=== PATIENT | female | born 1970 | race African-American/Black ===

== ENCOUNTER 2023-07-25 20:56 | Inpatient (IN) | payer SELFPAY ==
[~2023-07-25 20:56] MED LIST: EPINEPHrine 1 MG/ML AMP ONE; Fentanyl 250 MCG/5 ML VIAL ONE; Lidocaine 1% (PF) 30 ML VIAL ONE
[2023-07-25] MEDS ORDERED: PHENYLEPHRINE-NS 100 MCG/ML 10 ML SYRINGE ONE (21:02)
[2023-07-25] MEDS ORDERED: Lidocaine 1% PF 5 ML VIAL ONE (21:02)
[2023-07-25] MEDS ORDERED: Ondansetron PF 4 MG/2 ML Vial ONE (21:02)
[2023-07-25] MEDS ORDERED: Dexamethasone 20 MG/5 ML VIAL ONE (21:02)
[2023-07-25] MEDS ORDERED: PROPOFOL 200 MG/20 ML VIAL ONE (21:02)
[2023-07-25] MEDS ORDERED: Rocuronium Bromide 10 MG/ML (10ML VIAL) ONE (21:02)
[2023-07-25] MEDS ORDERED: Succinylcholine 200 MG/10 ml SYRINGE FS ONE (21:02)
[2023-07-25] MEDS ORDERED: Thrombin 5000 UNITS/5 ML VIAL ONE (21:19)
[2023-07-25] MEDS ORDERED: Propofol 1,000 MG/100 ML VIAL IV ONE (22:15)
[2023-07-25] MEDS ORDERED: Acetaminophen 650 MG Suppository PR PRN (22:31)
[2023-07-25] MEDS ORDERED: Propofol 1,000 MG/100 ML VIAL IV PRN (22:38)
[2023-07-25] MEDS ORDERED: Ventilator Sedation Protocol 1 EACH FS ONE (22:38)
[2023-07-25] MEDS ORDERED: FENTANYL 500 MCG/10 ML VIAL 2,000 MCG in Sodium Chloride 0.9% 60 ML IV PRN (22:42)
[2023-07-25] MEDS ORDERED: Fentanyl BOLUS 250 ML IVPB PRN (22:45)
[2023-07-25] MEDS ORDERED: Propofol BOLUS 1,000 MG/100 ML VIAL IV PRN (22:45)
[2023-07-25] MEDS ORDERED: DISCONTINUE PREVIOUS NARCOTIC PAIN MEDICATIONS AND BENZODIAZEPINES FS SCH (22:45)
[2023-07-25] MEDS ORDERED: Electrolyte Replacement Protocol 1 EACH FS SCH (22:45)
[2023-07-25] MEDS ORDERED: niCARdipine 25 MG in Sodium Chloride 0.9% 250 ML 250 ML IVPB SCH (23:00)
[2023-07-25] MEDS: Sodium Chloride 0.9% 1,000 ML IV SCH (23:42)
[2023-07-25 23:46] LABS: Actual Bicarbonate (HCO3a) 21.9 mEq/L (22-28); Base Excess (BEa) -2.9 mEq/L (-2.0 to +3.0); CO2 Tension 38.4 mmHg (35.0-45.0); Calcium, Ionized (arterial) 1.09 mmol/L (1.12-1.30); Carboxyhemoglobin (COHb) 0.9 gm% (0.0-3.0); Hematocrit-ABG 41 % (36.0-47.0); Hemoglobin (Hb) 13.9 g/dL (12.0-16.0); O2 Tension (PaO2), arterial 101.1 mmHg (80.0-100.0); Potassium - ABG Lab 3.56 mmol/L (3.70-5.30); pH, Arterial 7.374 (7.35-7.45)
[2023-07-25] MEDS: Fentanyl CADD 100 ML IV SCH (23:48)
[2023-07-25 23:50] LABS: Puncture Site Arterial Line
[2023-07-26] MEDS ORDERED: niCARdipine 25 MG in Sodium Chloride 0.9% 250 ML 250 ML IVPB SCH (03:45)
[2023-07-26] MEDS: Lorazepam 2 MG/ML VIAL SLOW IVP PRN (04:32)
[2023-07-26] MEDS: CEFAZOLIN 2 GM in Sodium Chloride 0.9% 100 ML IVPB SCH ×3 (04:33→20:32)
[2023-07-26 04:40] LABS: Hematocrit 37.5 % (36.0-47.0); Hemoglobin 12.9 g/dL (12.0-16.0); Mean Corpuscular HGB CONC 34.4 g/dL (32.0-36.0); Mean Corpuscular Hemoglobin 32.8 pg (27.0-31.0); Mean Corpuscular Volume 95.4 fl (78.0-98.0); Mean Platelet Volume 9.6 fL (7.4-10.4); Platelet Count 465 10x3/uL (130-400); RBC Distribution Width 13.2 % (11.5-14.5); Red Blood Cell (RBC) Count 3.93 mill/uL (4.20-5.40); White Blood Cell (WBC) Count 13.3 10x3/uL (4.8-10.8)
[2023-07-26 04:55] LABS: INR-International Normal Ratio 1.2; Prothrombin Time 15.3 sec (12.0-14.7)
[2023-07-26 04:56] LABS: PTT 31.1 sec (22.9-36.1)
[2023-07-26 05:18] LABS: Anion Gap 15 mmol/L (10-20); BUN (Urea Nitrogen) 8 mg/dL (9.8-20.1); Calc. Creatinine Clearance 95 mL/min (70-130); Calcium 8.5 mg/dL (7.8-10.44); Carbon Dioxide 21 mmol/L (22-29); Chloride 106 mmol/L (98-107); Estimated GFR 101; Glucose 120 mg/dL (70-105); Potassium 3.4 mmol/L (3.5-5.1); Sodium 139 mmol/L (136-145)
[2023-07-26 05:34] LABS: Delete Auto Diff?? YES; Manual Diff?? YES
[2023-07-26 06:36] LABS: Anisocytosis SLIGHT = 6-15 cells HPF (0-5); Band 3 % (5-11); CellaVision Operator ID LAB.JMM; Lymphocytes 7 % (21-51); Macrocytosis MODERATE=16-30 cells HPF (0-5); Monocytes 1 % (0-10); Neutrophil 87 % (42-75); Platelet Adequacy Comment Platelets Normal; Polychromasia SLIGHT = 2-3 cells HPF (0-2); Total Cell Count 101
[2023-07-26] MEDS: levETIRAcetam 500 MG/5 ML VIAL SLOW IVP SCH ×2 (07:51→20:33)
[2023-07-26] MEDS: Potassium Chloride 20 MEQ in Premix 1 BAG IVPB SCH ×2 (07:52→09:48)
[2023-07-26] MEDS ORDERED: Iopamidol-370 76% 500 ML MDV (1 ML CHARGE) ONE (09:00)
[2023-07-26] MEDS: Propofol 1,000 MG/100 ML VIAL IV PRN ×2 (11:30→20:49)
[2023-07-26] MEDS: Sodium Chloride 0.9% 1,000 ML IV SCH ×2 (11:31→20:34)
[2023-07-26] MEDS ORDERED: FLU VACC QS2023-24(6MOS UP)/PF 60 MCG/0.5 ML SYRINGE IM ONE (16:00)
[2023-07-27] MEDS: Lorazepam 2 MG/ML VIAL SLOW IVP PRN ×2 (02:49→22:40)
[2023-07-27] MEDS: Fentanyl CADD 100 ML IV SCH (02:56)
[2023-07-27 03:52] LABS: #Basophils 0.1 thou/uL (0.0-0.2); #Monocytes 0.9 thou/uL (0.11-0.59); #Neutrophils 8.1 thou/uL (1.40-6.50); %Basophils 0.6 % (0.0-1.0); %Eosinophils 0.3 % (0.0-10.0); %Lymphocytes 26.8 % (21.0-51.0); %Monocytes 6.8 % (0.0-10.0); %Neutrophils 65.1 % (42.0-75.0); Hematocrit 32.6 % (36.0-47.0); Mean Corpuscular HGB CONC 33.7 g/dL (32.0-36.0); Mean Corpuscular Hemoglobin 32.6 pg (27.0-31.0); Mean Corpuscular Volume 96.7 fl (78.0-98.0); Mean Platelet Volume 9.4 fL (7.4-10.4); Platelet Count 422 10x3/uL (130-400); RBC Distribution Width 13.7 % (11.5-14.5); Red Blood Cell (RBC) Count 3.37 mill/uL (4.20-5.40); White Blood Cell (WBC) Count 12.5 10x3/uL (4.8-10.8)
[2023-07-27 04:22] LABS: ALT (SGPT) 10 U/L (8-55); AST (SGOT) 11 U/L (5-34); Albumin 3.3 g/dL (3.5-5.0); Alkaline Phosphatase 62 U/L (40-110); Anion Gap 14 mmol/L (10-20); BUN (Urea Nitrogen) 13 mg/dL (9.8-20.1); Bilirubin, Total 0.5 mg/dL (0.2-1.2); Calc. Creatinine Clearance 91 mL/min (70-130); Calcium 8.2 mg/dL (7.8-10.44); Carbon Dioxide 20 mmol/L (22-29); Chloride 110 mmol/L (98-107); Estimated GFR 96; Globulin 2.6 g/dL (2.4-3.5); Glucose 87 mg/dL (70-105); Potassium 3.1 mmol/L (3.5-5.1); Protein, Total 5.9 g/dL (6.0-8.3); Sodium 141 mmol/L (136-145)
[2023-07-27] MEDS: CEFAZOLIN 2 GM in Sodium Chloride 0.9% 100 ML IVPB SCH ×3 (05:15→20:47)
[2023-07-27] MEDS: Potassium Chloride 20 MEQ in Premix 1 BAG IVPB SCH ×2 (08:31→10:09)
[2023-07-27] MEDS: levETIRAcetam 500 MG/5 ML VIAL SLOW IVP SCH ×2 (08:31→20:47)
[2023-07-27] MEDS: Dexmedetomidine 400 MCG, Admixture Fee 1 EACH in Sodium Chloride 0.9% 96 ML IVPB SCH (10:42)
[2023-07-27] MEDS: Morphine 2 MG/ML VIAL SLOW IVP PRN ×2 (11:02→20:25)
[2023-07-27] MEDS: Sodium Chloride 0.9% 1,000 ML IV SCH (15:06)
[2023-07-28] MEDS ORDERED: Scopolamine 1 mg/72 hour Patch TOP SCH (01:15)
[2023-07-28] MEDS: Sodium Chloride 0.9% 1,000 ML IV SCH ×2 (01:38→15:42)
[2023-07-28] MEDS: CEFAZOLIN 2 GM in Sodium Chloride 0.9% 100 ML IVPB SCH (04:06)
[2023-07-28] MEDS: Lorazepam 2 MG/ML VIAL SLOW IVP PRN ×4 (04:08→20:46)
[2023-07-28 04:41] LABS: #Basophils 0.1 thou/uL (0.0-0.2); #Eosinphils 0.2 thou/uL (0.0-0.7); #Monocytes 0.9 thou/uL (0.11-0.59); %Basophils 0.4 % (0.0-1.0); %Eosinophils 1.6 % (0.0-10.0); %Lymphocytes 23.6 % (21.0-51.0); %Monocytes 6.9 % (0.0-10.0); %Neutrophils 67.1 % (42.0-75.0); Hematocrit 32.4 % (36.0-47.0); Hemoglobin 10.7 g/dL (12.0-16.0); Mean Corpuscular Hemoglobin 32.7 pg (27.0-31.0); Mean Corpuscular Volume 99.1 fl (78.0-98.0); Mean Platelet Volume 9.9 fL (7.4-10.4); Platelet Count 409 10x3/uL (130-400); RBC Distribution Width 13.4 % (11.5-14.5); Red Blood Cell (RBC) Count 3.27 mill/uL (4.20-5.40); White Blood Cell (WBC) Count 13.4 10x3/uL (4.8-10.8)
[2023-07-28] MEDS: Dexmedetomidine 400 MCG, Admixture Fee 1 EACH in Sodium Chloride 0.9% 96 ML IVPB SCH ×2 (04:53→16:48)
[2023-07-28 05:03] LABS: Anion Gap 13 mmol/L (10-20); BUN (Urea Nitrogen) 11 mg/dL (9.8-20.1); Calc. Creatinine Clearance 105 mL/min (70-130); Calcium 8.5 mg/dL (7.8-10.44); Carbon Dioxide 19 mmol/L (22-29); Chloride 111 mmol/L (98-107); Estimated GFR 104; Glucose 69 mg/dL (70-105); Potassium 3.3 mmol/L (3.5-5.1); Sodium 140 mmol/L (136-145)
[2023-07-28] MEDS ORDERED: Ipratropium/Albuterol 3 ML NEB NEB SCH (07:45)
[2023-07-28] MEDS: levETIRAcetam 500 MG/5 ML VIAL SLOW IVP SCH ×2 (08:48→20:46)
[2023-07-28] MEDS: Potassium Chloride 20 MEQ in Premix 1 BAG IVPB SCH ×2 (08:49→10:03)
[2023-07-28] MEDS: Ipratropium/Albuterol 3 ML NEB NEB SCH ×3 (13:33→23:42)
[2023-07-28 16:48] LABS: Potassium 3.8 mmol/L (3.5-5.1)
[2023-07-28] MEDS ORDERED: Scopolamine 1 mg/72 hour Patch ONE (22:59)
[2023-07-28] MEDS: Scopolamine 1 mg/72 hour Patch TD SCH (23:24)
[2023-07-29] MEDS: Dexmedetomidine 400 MCG, Admixture Fee 1 EACH in Sodium Chloride 0.9% 96 ML IVPB SCH (01:23)
[2023-07-29] MEDS: Fentanyl CADD 100 ML IV SCH (01:58)
[2023-07-29] MEDS: Morphine 2 MG/ML VIAL SLOW IVP PRN (02:14)
[2023-07-29] MEDS: Lorazepam 2 MG/ML VIAL SLOW IVP PRN ×2 (02:46→18:45)
[2023-07-29] MEDS: Ondansetron PF 4 MG/2 ML Vial IVP PRN ×2 (02:49→14:00)
[2023-07-29 03:45] LABS: #Basophils 0.1 thou/uL (0.0-0.2); #Eosinphils 0.1 thou/uL (0.0-0.7); #Monocytes 0.9 thou/uL (0.11-0.59); #Neutrophils 12.5 thou/uL (1.40-6.50); %Basophils 0.3 % (0.0-1.0); %Eosinophils 0.4 % (0.0-10.0); %Lymphocytes 10.6 % (21.0-51.0); %Monocytes 6.2 % (0.0-10.0); Hematocrit 30.6 % (36.0-47.0); Hemoglobin 10.2 g/dL (12.0-16.0); Mean Corpuscular HGB CONC 33.3 g/dL (32.0-36.0); Mean Corpuscular Hemoglobin 33.2 pg (27.0-31.0); Mean Corpuscular Volume 99.7 fl (78.0-98.0); Mean Platelet Volume 9.4 fL (7.4-10.4); Platelet Count 415 10x3/uL (130-400); RBC Distribution Width 12.6 % (11.5-14.5); Red Blood Cell (RBC) Count 3.07 mill/uL (4.20-5.40); White Blood Cell (WBC) Count 15.2 10x3/uL (4.8-10.8)
[2023-07-29 04:07] LABS: Anion Gap 16 mmol/L (10-20); BUN (Urea Nitrogen) 7 mg/dL (9.8-20.1); Calc. Creatinine Clearance 98 mL/min (70-130); Calcium 8.5 mg/dL (7.8-10.44); Carbon Dioxide 19 mmol/L (22-29); Chloride 106 mmol/L (98-107); Estimated GFR 97; Glucose 90 mg/dL (70-105); Potassium 3.9 mmol/L (3.5-5.1); Sodium 137 mmol/L (136-145)
[2023-07-29] MEDS: Sodium Chloride 0.9% 1,000 ML IV SCH ×3 (05:23→20:32)
[2023-07-29] MEDS: Ipratropium/Albuterol 3 ML NEB NEB SCH ×3 (06:53→18:46)
[2023-07-29] MEDS: levETIRAcetam 500 MG/5 ML VIAL SLOW IVP SCH ×2 (08:48→20:32)
[2023-07-29] MEDS ORDERED: Succinylcholine 200 MG/10 ml SYRINGE FS ONE (16:50)
[2023-07-29] MEDS ORDERED: PROPOFOL 200 MG/20 ML VIAL ONE (16:50)
[2023-07-29] MEDS ORDERED: Ventilator Sedation Protocol FS PRN (17:01)
[2023-07-29] MEDS ORDERED: Succinylcholine Chloride 200 MG/10 ML VIAL IVP SCH (17:45)
[2023-07-29] MEDS: Famotidine/PF 20 mg/2ml Vial SLOW IVP SCH (20:31)
[2023-07-29] MEDS: Dexamethasone 4 mg/ml Vial SLOW IVP SCH (20:32)
[2023-07-29] MEDS: Propofol 1,000 MG/100 ML VIAL IV PRN (22:30)
[2023-07-30] MEDS: Ipratropium/Albuterol 3 ML NEB NEB SCH ×5 (00:13→22:15)
[2023-07-30] MEDS: Propofol 1,000 MG/100 ML VIAL IV PRN (04:16)
[2023-07-30 04:50] LABS: #Monocytes 0.7 thou/uL (0.11-0.59); #Neutrophils 16.7 thou/uL (1.40-6.50); %Basophils 0.2 % (0.0-1.0); %Eosinophils 0.2 % (0.0-10.0); %Monocytes 3.9 % (0.0-10.0); Hematocrit 28.7 % (36.0-47.0); Hemoglobin 9.9 g/dL (12.0-16.0); Mean Corpuscular HGB CONC 34.5 g/dL (32.0-36.0); Mean Corpuscular Hemoglobin 33.6 pg (27.0-31.0); Mean Corpuscular Volume 97.3 fl (78.0-98.0); Mean Platelet Volume 9.7 fL (7.4-10.4); Platelet Count 467 10x3/uL (130-400); RBC Distribution Width 12.6 % (11.5-14.5); Red Blood Cell (RBC) Count 2.95 mill/uL (4.20-5.40); White Blood Cell (WBC) Count 18.4 10x3/uL (4.8-10.8)
[2023-07-30 05:31] LABS: Anion Gap 14 mmol/L (10-20); BUN (Urea Nitrogen) 4 mg/dL (9.8-20.1); Calc. Creatinine Clearance 104 mL/min (70-130); Calcium 8.5 mg/dL (7.8-10.44); Carbon Dioxide 22 mmol/L (22-29); Chloride 104 mmol/L (98-107); Estimated GFR 104; Glucose 131 mg/dL (70-105); Potassium 3.7 mmol/L (3.5-5.1); Sodium 136 mmol/L (136-145)
[2023-07-30 06:41] LABS: Bacteria/HPF None Seen HPF (None Seen); Bilirubin Negative (Negative); Blood, Urine Negative (Negative); CAUTI Indications for Culture Fever or rigors; Clarity Clear (Clear); Glucose, Urine (Dipstick) Normal (Negative); Ketone, Urine 20 mg/dL (Negative); Leukocyte Negative Leu/uL (Negative); Nitrite Negative (Negative); Protein, Urine (Dipstick) Negative (Neg-Trace); RBC/HPF 0-3 HPF (0-3); Specific Gravity, Urine 1.008 (1.002-1.036); Squamous Epithelial 0-3 HPF (0-3); Urobilinogen Normal mg/dL (Less than 2); WBC/HPF 0-3 HPF (0-3)
[2023-07-30 06:43] LABS: Urine Culture Reflex No No
[2023-07-30 06:59] LABS: Actual Bicarbonate (HCO3a) 24.2 mEq/L (22-28); Base Excess (BEa) 1.3 mEq/L (-2.0 to +3.0); CO2 Tension 32.5 mmHg (35.0-45.0); Calcium, Ionized (arterial) 1.17 mmol/L (1.12-1.30); Hematocrit-ABG 33 % (36.0-47.0); Hemoglobin (Hb) 11.1 g/dL (12.0-16.0); O2 Tension (PaO2), arterial 64.1 mmHg (80.0-100.0); Potassium - ABG Lab 3.91 mmol/L (3.70-5.30)
[2023-07-30 07:01] LABS: ALV-art Gradient 180.475 mmHg (0-20); Puncture Site Right Radial
[2023-07-30] MEDS ORDERED: Piperacillin/Tazobactam 3.375 GM in Sodium Chloride 0.9% 100 ML IVPB SCH ×2 (08:00→10:00)
[2023-07-30] MEDS: levETIRAcetam 500 MG/5 ML VIAL SLOW IVP SCH ×2 (10:00→20:06)
[2023-07-30] MEDS: Famotidine/PF 20 mg/2ml Vial SLOW IVP SCH ×2 (10:00→20:06)
[2023-07-30] MEDS: Dexamethasone 4 mg/ml Vial SLOW IVP SCH ×2 (10:00→20:07)
[2023-07-30] MEDS: Sodium Chloride 0.9% 1,000 ML IV SCH ×2 (10:01→22:49)
[2023-07-30] MEDS: Lorazepam 2 MG/ML VIAL SLOW IVP PRN (12:38)
[2023-07-30] MEDS: Piperacillin/Tazobactam 3.375 GM in Sodium Chloride 0.9% 100 ML IVPB SCH ×2 (14:40→22:48)
[2023-07-30] MEDS: Fentanyl CADD 100 ML IV SCH (18:17)
[2023-07-31] MEDS ORDERED: Scopolamine 1 mg/72 hour Patch TD SCH (02:00)
[2023-07-31 04:19] LABS: #Eosinphils 0.5 thou/uL (0.0-0.7); #Monocytes 1.1 thou/uL (0.11-0.59); #Neutrophils 16.4 thou/uL (1.40-6.50); %Basophils 0.2 % (0.0-1.0); %Eosinophils 2.8 % (0.0-10.0); %Lymphocytes 4.6 % (21.0-51.0); %Monocytes 5.9 % (0.0-10.0); %Neutrophils 85.7 % (42.0-75.0); Hematocrit 29.4 % (36.0-47.0); Hemoglobin 9.6 g/dL (12.0-16.0); Mean Corpuscular HGB CONC 32.7 g/dL (32.0-36.0); Mean Platelet Volume 9.9 fL (7.4-10.4); Platelet Count 454 10x3/uL (130-400); RBC Distribution Width 15.2 % (11.5-14.5); Red Blood Cell (RBC) Count 2.91 mill/uL (4.20-5.40); White Blood Cell (WBC) Count 19.1 10x3/uL (4.8-10.8)
[2023-07-31 05:49] LABS: Anion Gap 13 mmol/L (10-20); BUN (Urea Nitrogen) 6 mg/dL (9.8-20.1); Calc. Creatinine Clearance 111 mL/min (70-130); Calcium 8.7 mg/dL (7.8-10.44); Carbon Dioxide 25 mmol/L (22-29); Chloride 104 mmol/L (98-107); Estimated GFR 106; Glucose 170 mg/dL (70-105); Potassium 4.1 mmol/L (3.5-5.1); Sodium 138 mmol/L (136-145)
[2023-07-31] MEDS: Piperacillin/Tazobactam 3.375 GM in Sodium Chloride 0.9% 100 ML IVPB SCH ×3 (06:18→21:40)
[2023-07-31 06:55] LABS: Actual Bicarbonate (HCO3a) 26.2 mEq/L (22-28); Base Excess (BEa) 3.2 mEq/L (-2.0 to +3.0); CO2 Tension 34.5 mmHg (35.0-45.0); Calcium, Ionized (arterial) 1.19 mmol/L (1.12-1.30); Carboxyhemoglobin (COHb) 0.4 gm% (0.0-3.0); Hematocrit-ABG 37 % (36.0-47.0); Hemoglobin (Hb) 12.6 g/dL (12.0-16.0); Potassium - ABG Lab 4.04 mmol/L (3.70-5.30); pH, Arterial 7.498 (7.35-7.45)
[2023-07-31 06:57] LABS: Puncture Site Right Radial
[2023-07-31] MEDS: Ipratropium/Albuterol 3 ML NEB NEB SCH ×4 (07:26→22:03)
[2023-07-31] MEDS: Propofol 1,000 MG/100 ML VIAL IV PRN ×2 (07:53→19:46)
[2023-07-31] MEDS: Famotidine/PF 20 mg/2ml Vial SLOW IVP SCH ×2 (09:11→21:03)
[2023-07-31] MEDS: levETIRAcetam 500 MG/5 ML VIAL SLOW IVP SCH ×2 (09:11→21:03)
[2023-07-31] MEDS: Dexamethasone 4 mg/ml Vial SLOW IVP SCH ×2 (09:11→21:03)
[2023-07-31] MEDS: Lorazepam 2 MG/ML VIAL SLOW IVP PRN ×2 (09:11→14:17)
[2023-07-31] MEDS: Sodium Chloride 0.9% 1,000 ML IV SCH (11:54)
[2023-07-31] MEDS: Scopolamine 1 mg/72 hour Patch TD SCH (21:04)
[2023-08-01] MEDS: Sodium Chloride 0.9% 1,000 ML IV SCH ×3 (01:53→23:37)
[2023-08-01] MEDS: Dexmedetomidine 400 MCG, Admixture Fee 1 EACH in Sodium Chloride 0.9% 96 ML IVPB SCH ×3 (03:42→23:41)
[2023-08-01 04:19] LABS: #Monocytes 1.1 thou/uL (0.11-0.59); #Neutrophils 14.1 thou/uL (1.40-6.50); %Basophils 0.2 % (0.0-1.0); %Eosinophils 0.1 % (0.0-10.0); %Lymphocytes 6.4 % (21.0-51.0); %Monocytes 6.4 % (0.0-10.0); Hemoglobin 9.1 g/dL (12.0-16.0); Mean Corpuscular HGB CONC 33.7 g/dL (32.0-36.0); Mean Platelet Volume 9.4 fL (7.4-10.4); RBC Distribution Width 12.8 % (11.5-14.5); Red Blood Cell (RBC) Count 2.76 mill/uL (4.20-5.40); White Blood Cell (WBC) Count 16.5 10x3/uL (4.8-10.8)
[2023-08-01 04:23] LABS: Mean Corpuscular Volume 97.8 fl (78.0-98.0); Platelet Count 625 10x3/uL (130-400)
[2023-08-01 04:43] LABS: Anion Gap 12 mmol/L (10-20); BUN (Urea Nitrogen) 10 mg/dL (9.8-20.1); Calc. Creatinine Clearance 112 mL/min (70-130); Calcium 8.8 mg/dL (7.8-10.44); Carbon Dioxide 27 mmol/L (22-29); Chloride 105 mmol/L (98-107); Estimated GFR 107; Glucose 146 mg/dL (70-105); Potassium 3.8 mmol/L (3.5-5.1); Sodium 140 mmol/L (136-145)
[2023-08-01] MEDS: Fentanyl CADD 100 ML IV SCH (04:44)
[2023-08-01 05:14] LABS: Bilirubin Negative (Negative); Blood, Urine Negative (Negative); Clarity Clear (Clear); Glucose, Urine (Dipstick) Normal (Negative); Ketone, Urine Negative (Negative); Leukocyte Negative Leu/uL (Negative); Nitrite Negative (Negative); Protein, Urine (Dipstick) Negative (Neg-Trace); Specific Gravity, Urine 1.012 (1.002-1.036); Urobilinogen Normal mg/dL (Less than 2); pH, Urine 7.5 (5.0-9.0)
[2023-08-01] MEDS: Piperacillin/Tazobactam 3.375 GM in Sodium Chloride 0.9% 100 ML IVPB SCH ×2 (05:45→17:07)
[2023-08-01] MEDS: Propofol 1,000 MG/100 ML VIAL IV PRN (05:46)
[2023-08-01] MEDS ORDERED: Midazolam HCl 2 mg/2 ml Vial ONE (07:04)
[2023-08-01] MEDS ORDERED: fentaNYL PF 100 MCG/2 ML SYRINGE ONE (07:05)
[2023-08-01] MEDS: Ipratropium/Albuterol 3 ML NEB NEB SCH ×4 (07:10→23:14)
[2023-08-01 07:26] LABS: Actual Bicarbonate (HCO3a) 29.3 mEq/L (22-28); Base Excess (BEa) 5.4 mEq/L (-2.0 to +3.0); CO2 Tension 40.2 mmHg (35.0-45.0); Carboxyhemoglobin (COHb) 0.7 gm% (0.0-3.0); Hematocrit-ABG 46 % (36.0-47.0); Hemoglobin (Hb) 15.8 g/dL (12.0-16.0); O2 Tension (PaO2), arterial 143.7 mmHg (80.0-100.0); Potassium - ABG Lab 3.84 mmol/L (3.70-5.30)
[2023-08-01 07:31] LABS: Puncture Site RRA
[2023-08-01] MEDS ORDERED: Bupivacaine PF 0.5% 30 ML VIAL ONE (08:17)
[2023-08-01] MEDS ORDERED: EPINEPHrine 1 MG/ML AMP ONE (08:17)
[2023-08-01] MEDS ORDERED: Lidocaine 2% PF 5 ML VIAL ONE (08:17)
[2023-08-01] MEDS: levETIRAcetam 500 MG/5 ML VIAL SLOW IVP SCH ×2 (09:52→20:29)
[2023-08-01] MEDS: Famotidine/PF 20 mg/2ml Vial SLOW IVP SCH ×2 (09:52→20:29)
[2023-08-01] MEDS: Lorazepam 2 MG/ML VIAL SLOW IVP PRN (11:51)
[2023-08-01] MEDS ORDERED: Dexmedetomidine 400 MCG, Admixture Fee 1 EACH in Sodium Chloride 0.9% 96 ML IVPB SCH (23:45)
[2023-08-01] MEDS ORDERED: Dexmedetomidine In 0.9 % NaCl 100 ML IVPB SCH (23:45)
[2023-08-02] MEDS ORDERED: Lactated Ringer's 500 ML IV SCH ×2 (01:00→01:30)
[2023-08-02] MEDS: Piperacillin/Tazobactam 3.375 GM in Sodium Chloride 0.9% 100 ML IVPB SCH ×3 (01:12→15:44)
[2023-08-02] MEDS: Dexmedetomidine 1,000 MCG, Admixture Fee 1 EACH in Sodium Chloride 0.9% 250 ML 240 ML IVPB SCH ×2 (03:34→17:19)
[2023-08-02 04:29] LABS: #Basophils 0.1 thou/uL (0.0-0.2); #Eosinphils 0.5 thou/uL (0.0-0.7); #Monocytes 0.9 thou/uL (0.11-0.59); #Neutrophils 8.6 thou/uL (1.40-6.50); %Basophils 0.4 % (0.0-1.0); %Eosinophils 3.6 % (0.0-10.0); %Lymphocytes 19.4 % (21.0-51.0); %Monocytes 7.2 % (0.0-10.0); %Neutrophils 68.5 % (42.0-75.0); Hematocrit 28.8 % (36.0-47.0); Hemoglobin 9.3 g/dL (12.0-16.0); Mean Corpuscular HGB CONC 32.3 g/dL (32.0-36.0); Mean Corpuscular Hemoglobin 32.4 pg (27.0-31.0); Mean Corpuscular Volume 100.3 fl (78.0-98.0); Mean Platelet Volume 9.2 fL (7.4-10.4); Platelet Count 626 10x3/uL (130-400); RBC Distribution Width 13.2 % (11.5-14.5); Red Blood Cell (RBC) Count 2.87 mill/uL (4.20-5.40); White Blood Cell (WBC) Count 12.6 10x3/uL (4.8-10.8)
[2023-08-02] MEDS ORDERED: Albumin 25% 25 GM/100 ML BOT IVPB SCH (04:30)
[2023-08-02 04:53] LABS: Anion Gap 14 mmol/L (10-20); BUN (Urea Nitrogen) 10 mg/dL (9.8-20.1); Calc. Creatinine Clearance 104 mL/min (70-130); Calcium 8.6 mg/dL (7.8-10.44); Carbon Dioxide 24 mmol/L (22-29); Chloride 109 mmol/L (98-107); Estimated GFR 106; Glucose 123 mg/dL (70-105); Potassium 3.1 mmol/L (3.5-5.1); Sodium 144 mmol/L (136-145)
[2023-08-02] MEDS: Ipratropium/Albuterol 3 ML NEB NEB SCH ×3 (06:50→18:38)
[2023-08-02 07:17] LABS: Actual Bicarbonate (HCO3a) 26.5 mEq/L (22-28); Base Excess (BEa) 1.6 mEq/L (-2.0 to +3.0); CO2 Tension 42.9 mmHg (35.0-45.0); Calcium, Ionized (arterial) 1.17 mmol/L (1.12-1.30); Carboxyhemoglobin (COHb) 0.3 gm% (0.0-3.0); Hematocrit-ABG 30 % (36.0-47.0); Hemoglobin (Hb) 10.2 g/dL (12.0-16.0); Potassium - ABG Lab 3.29 mmol/L (3.70-5.30); pH, Arterial 7.408 (7.35-7.45)
[2023-08-02 07:18] LABS: ALV-art Gradient 120.575 mmHg (0-20); Puncture Site LRA
[2023-08-02] MEDS: Lorazepam 2 MG/ML VIAL SLOW IVP PRN ×3 (08:40→22:22)
[2023-08-02] MEDS: Famotidine/PF 20 mg/2ml Vial SLOW IVP SCH ×2 (08:41→22:08)
[2023-08-02] MEDS: levETIRAcetam 500 MG/5 ML VIAL SLOW IVP SCH ×2 (08:41→22:08)
[2023-08-02] MEDS ORDERED: Polyethylene Glycol 3350 17 GM Packet PO SCH (09:45)
[2023-08-02] MEDS ORDERED: Senokot S 8.6-50 MG TAB PO SCH ×2 (10:00→21:00)
[2023-08-02] MEDS ORDERED: Docusate Sodium 100 MG/10 ML UDCUP PO SCH (10:00)
[2023-08-02] MEDS: Potassium Chloride 20 MEQ in Premix 1 BAG IVPB SCH ×3 (15:43→22:45)
[2023-08-02] MEDS: Sodium Chloride 0.9% 1,000 ML IV SCH (16:24)
[2023-08-02 20:44] LABS: Potassium 3.4 mmol/L (3.5-5.1)
[2023-08-02] MEDS: Docusate Sodium 100 MG/10 ML UDCUP PO SCH (22:09)
[2023-08-02] MEDS: ALPRAZolam 0.5 MG TAB PER TUBE SCH (22:09)
[2023-08-03] MEDS: Ipratropium/Albuterol 3 ML NEB NEB SCH ×5 (00:13→23:58)
[2023-08-03] MEDS: Potassium Chloride 20 MEQ in Premix 1 BAG IVPB SCH (01:13)
[2023-08-03] MEDS: Dexmedetomidine 1,000 MCG, Admixture Fee 1 EACH in Sodium Chloride 0.9% 250 ML 240 ML IVPB SCH ×2 (01:13→23:14)
[2023-08-03] MEDS: Piperacillin/Tazobactam 3.375 GM in Sodium Chloride 0.9% 100 ML IVPB SCH ×3 (01:13→17:37)
[2023-08-03 04:15] LABS: #Eosinphils 0.5 thou/uL (0.0-0.7); #Monocytes 1.1 thou/uL (0.11-0.59); #Neutrophils 12.9 thou/uL (1.40-6.50); %Basophils 0.2 % (0.0-1.0); %Eosinophils 2.9 % (0.0-10.0); %Lymphocytes 14.5 % (21.0-51.0); %Monocytes 6.5 % (0.0-10.0); %Neutrophils 74.9 % (42.0-75.0); Hematocrit 27.7 % (36.0-47.0); Mean Corpuscular HGB CONC 32.5 g/dL (32.0-36.0); Mean Corpuscular Hemoglobin 32.8 pg (27.0-31.0); Mean Corpuscular Volume 101.1 fl (78.0-98.0); Platelet Count 693 10x3/uL (130-400); RBC Distribution Width 13.3 % (11.5-14.5); Red Blood Cell (RBC) Count 2.74 mill/uL (4.20-5.40); White Blood Cell (WBC) Count 17.3 10x3/uL (4.8-10.8)
[2023-08-03 04:46] LABS: Anion Gap 11 mmol/L (10-20); BUN (Urea Nitrogen) 9 mg/dL (9.8-20.1); Calc. Creatinine Clearance 104 mL/min (70-130); Calcium 8.9 mg/dL (7.8-10.44); Carbon Dioxide 25 mmol/L (22-29); Chloride 105 mmol/L (98-107); Estimated GFR 106; Glucose 131 mg/dL (70-105); Potassium 3.8 mmol/L (3.5-5.1); Sodium 137 mmol/L (136-145)
[2023-08-03] MEDS ORDERED: Glycopyrrolate 0.2 MG/ML 5 ML SYRINGE SLOW IVP SCH ×2 (08:01→08:15)
[2023-08-03] MEDS ORDERED: GLYCOPYRROLATE/PF 0.2 MG/ML VIAL SLOW IVP SCH (08:45)
[2023-08-03] MEDS: Famotidine/PF 20 mg/2ml Vial SLOW IVP SCH ×2 (09:34→21:14)
[2023-08-03] MEDS: ALPRAZolam 0.5 MG TAB PER TUBE SCH ×2 (09:34→21:13)
[2023-08-03] MEDS: levETIRAcetam 500 MG/5 ML VIAL SLOW IVP SCH ×2 (09:34→21:14)
[2023-08-03] MEDS: Sodium Chloride 0.9% 1,000 ML IV SCH ×2 (09:35→21:10)
[2023-08-03] MEDS: Docusate Sodium 100 MG/10 ML UDCUP PO SCH ×2 (09:35→21:14)
[2023-08-03] MEDS: Polyethylene Glycol 3350 17 GM Packet PO SCH (09:36)
[2023-08-04] MEDS: Scopolamine 1 mg/72 hour Patch TD SCH (01:06)
[2023-08-04 04:33] LABS: #Eosinphils 0.4 thou/uL (0.0-0.7); #Monocytes 1.1 thou/uL (0.11-0.59); #Neutrophils 18.3 thou/uL (1.40-6.50); %Basophils 0.2 % (0.0-1.0); %Eosinophils 1.6 % (0.0-10.0); %Lymphocytes 11.1 % (21.0-51.0); %Monocytes 4.8 % (0.0-10.0); %Neutrophils 81.1 % (42.0-75.0); Hematocrit 28.5 % (36.0-47.0); Hemoglobin 9.3 g/dL (12.0-16.0); Mean Corpuscular HGB CONC 32.6 g/dL (32.0-36.0); Mean Corpuscular Hemoglobin 32.5 pg (27.0-31.0); Mean Corpuscular Volume 99.7 fl (78.0-98.0); Platelet Count 838 10x3/uL (130-400); RBC Distribution Width 13.3 % (11.5-14.5); Red Blood Cell (RBC) Count 2.86 mill/uL (4.20-5.40); White Blood Cell (WBC) Count 22.5 10x3/uL (4.8-10.8)
[2023-08-04 04:55] LABS: Anion Gap 11 mmol/L (10-20); BUN (Urea Nitrogen) 11 mg/dL (9.8-20.1); Calc. Creatinine Clearance 109 mL/min (70-130); Calcium 9.2 mg/dL (7.8-10.44); Carbon Dioxide 26 mmol/L (22-29); Chloride 107 mmol/L (98-107); Estimated GFR 106; Glucose 135 mg/dL (70-105); Potassium 3.5 mmol/L (3.5-5.1); Sodium 140 mmol/L (136-145)
[2023-08-04] MEDS: Ipratropium/Albuterol 3 ML NEB NEB SCH ×4 (07:23→23:45)
[2023-08-04] MEDS: Potassium Chloride 20 MEQ in Premix 1 BAG IVPB SCH ×2 (09:06→11:29)
[2023-08-04] MEDS: ALPRAZolam 0.5 MG TAB PER TUBE SCH (09:06)
[2023-08-04] MEDS: Famotidine/PF 20 mg/2ml Vial SLOW IVP SCH ×2 (09:06→21:16)
[2023-08-04] MEDS: levETIRAcetam 500 MG/5 ML VIAL SLOW IVP SCH (09:06)
[2023-08-04] MEDS: Docusate Sodium 100 MG/10 ML UDCUP PO SCH (09:07)
[2023-08-04] MEDS: Polyethylene Glycol 3350 17 GM Packet PO SCH (09:08)
[2023-08-04] MEDS ORDERED: Cefepime 2 GM in Sodium Chloride 0.9% 100 ML IVPB SCH (09:15)
[2023-08-04] MEDS ORDERED: ALPRAZolam 0.5 MG TAB PER TUBE PRN (09:15)
[2023-08-04] MEDS ORDERED: Polyethylene Glycol 3350 17 GM Packet PO PRN (09:15)
[2023-08-04] MEDS ORDERED: Docusate Sodium 100 MG/10 ML UDCUP PO PRN (09:15)
[2023-08-04] MEDS: Lorazepam 2 MG/ML VIAL SLOW IVP PRN ×2 (12:13→17:30)
[2023-08-04] MEDS: Sodium Chloride 0.9% 1,000 ML IV SCH (12:26)
[2023-08-04] MEDS ORDERED: QUEtiapine 25 MG TAB PO SCH (21:00)
[2023-08-04] MEDS: Cefepime 2 GM in Sodium Chloride 0.9% 100 ML IVPB SCH (21:16)
[2023-08-04] MEDS: Acetaminophen 650 MG/20.3 ML UDCUP PER TUBE PRN (22:16)
[2023-08-04] MEDS: Ondansetron PF 4 MG/2 ML Vial IVP PRN (22:25)
[2023-08-05] MEDS: Sodium Chloride 0.9% 1,000 ML IV SCH ×3 (03:41→23:41)
[2023-08-05 05:37] LABS: #Basophils 0.1 thou/uL (0.0-0.2); #Eosinphils 0.6 thou/uL (0.0-0.7); #Monocytes 1.1 thou/uL (0.11-0.59); #Neutrophils 15.3 thou/uL (1.40-6.50); %Basophils 0.3 % (0.0-1.0); %Lymphocytes 13.3 % (21.0-51.0); %Monocytes 5.5 % (0.0-10.0); %Neutrophils 76.6 % (42.0-75.0); Hematocrit 27.2 % (36.0-47.0); Hemoglobin 8.7 g/dL (12.0-16.0); Mean Corpuscular Hemoglobin 32.3 pg (27.0-31.0); Mean Corpuscular Volume 101.1 fl (78.0-98.0); Mean Platelet Volume 8.9 fL (7.4-10.4); RBC Distribution Width 13.2 % (11.5-14.5); Red Blood Cell (RBC) Count 2.69 mill/uL (4.20-5.40)
[2023-08-05 05:55] LABS: Platelet Count 913 10x3/uL (130-400)
[2023-08-05 06:01] LABS: Anion Gap 11 mmol/L (10-20); BUN (Urea Nitrogen) 9 mg/dL (9.8-20.1); Calc. Creatinine Clearance 114 mL/min (70-130); Calcium 8.7 mg/dL (7.8-10.44); Carbon Dioxide 26 mmol/L (22-29); Chloride 105 mmol/L (98-107); Estimated GFR 107; Glucose 117 mg/dL (70-105); Potassium 3.5 mmol/L (3.5-5.1); Sodium 138 mmol/L (136-145)
[2023-08-05] MEDS: Ipratropium/Albuterol 3 ML NEB NEB SCH ×3 (07:08→19:17)
[2023-08-05] MEDS ORDERED: Potassium Bicarbonate/Cit Ac 20 MEQ TAB PER TUBE SCH (08:00)
[2023-08-05] MEDS: Cefepime 2 GM in Sodium Chloride 0.9% 100 ML IVPB SCH ×2 (08:41→20:20)
[2023-08-05] MEDS: Famotidine/PF 20 mg/2ml Vial SLOW IVP SCH ×2 (08:41→20:21)
[2023-08-05] MEDS: Acetaminophen 650 MG/20.3 ML UDCUP PER TUBE PRN ×2 (08:49→18:20)
[2023-08-05] MEDS: Metoclopramide HCl 10 MG/2 ML VIAL IVP SCH ×3 (10:57→23:40)
[2023-08-05] MEDS ORDERED: Guaifenesin DM 100-10/5 ML UDCUP PER TUBE PRN (16:34)
[2023-08-06] MEDS: Ipratropium/Albuterol 3 ML NEB NEB SCH ×5 (00:45→23:37)
[2023-08-06] MEDS ORDERED: Simethicone Chewable 80 MG TAB PO PRN (02:43)
[2023-08-06] MEDS: Metoclopramide HCl 10 MG/2 ML VIAL IVP SCH ×4 (05:35→21:45)
[2023-08-06 05:46] LABS: #Eosinphils 0.6 thou/uL (0.0-0.7); #Monocytes 0.9 thou/uL (0.11-0.59); #Neutrophils 9.8 thou/uL (1.40-6.50); %Basophils 0.2 % (0.0-1.0); %Lymphocytes 16.4 % (21.0-51.0); %Monocytes 6.3 % (0.0-10.0); %Neutrophils 71.9 % (42.0-75.0); Hematocrit 24.7 % (36.0-47.0); Mean Corpuscular HGB CONC 32.4 g/dL (32.0-36.0); Mean Corpuscular Hemoglobin 32.4 pg (27.0-31.0); Mean Platelet Volume 8.9 fL (7.4-10.4); Platelet Count 859 10x3/uL (130-400); Red Blood Cell (RBC) Count 2.47 mill/uL (4.20-5.40); White Blood Cell (WBC) Count 13.6 10x3/uL (4.8-10.8)
[2023-08-06 06:12] LABS: Anion Gap 9 mmol/L (10-20); BUN (Urea Nitrogen) 6 mg/dL (9.8-20.1); Calc. Creatinine Clearance 122 mL/min (70-130); Calcium 8.8 mg/dL (7.8-10.44); Carbon Dioxide 28 mmol/L (22-29); Chloride 105 mmol/L (98-107); Estimated GFR 108; Glucose 101 mg/dL (70-105); Potassium 3.7 mmol/L (3.5-5.1); Sodium 138 mmol/L (136-145)
[2023-08-06] MEDS: Acetaminophen 650 MG/20.3 ML UDCUP PER TUBE PRN ×2 (07:49→23:51)
[2023-08-06] MEDS: Sodium Chloride 0.9% 1,000 ML IV SCH ×2 (09:26→23:55)
[2023-08-06] MEDS: Cefepime 2 GM in Sodium Chloride 0.9% 100 ML IVPB SCH ×2 (09:33→21:45)
[2023-08-06] MEDS: Famotidine/PF 20 mg/2ml Vial SLOW IVP SCH ×2 (09:34→21:45)
[2023-08-06] MEDS: Lorazepam 2 MG/ML VIAL SLOW IVP PRN (18:11)
[2023-08-06] MEDS: Scopolamine 1 mg/72 hour Patch TD SCH (21:46)
[2023-08-06] MEDS: QUEtiapine 25 MG TAB PO SCH (21:48)
[2023-08-07] MEDS: Metoclopramide HCl 10 MG/2 ML VIAL IVP SCH ×4 (03:56→21:32)
[2023-08-07 04:48] LABS: #Eosinphils 0.6 thou/uL (0.0-0.7); #Monocytes 1.1 thou/uL (0.11-0.59); #Neutrophils 10.9 thou/uL (1.40-6.50); %Basophils 0.2 % (0.0-1.0); %Eosinophils 3.7 % (0.0-10.0); %Lymphocytes 20.5 % (21.0-51.0); %Monocytes 6.7 % (0.0-10.0); Hematocrit 28.1 % (36.0-47.0); Hemoglobin 9.3 g/dL (12.0-16.0); Mean Corpuscular HGB CONC 33.1 g/dL (32.0-36.0); Mean Corpuscular Hemoglobin 32.5 pg (27.0-31.0); Mean Corpuscular Volume 98.3 fl (78.0-98.0); Mean Platelet Volume 9.3 fL (7.4-10.4); RBC Distribution Width 12.7 % (11.5-14.5); Red Blood Cell (RBC) Count 2.86 mill/uL (4.20-5.40); White Blood Cell (WBC) Count 16.1 10x3/uL (4.8-10.8)
[2023-08-07 05:08] LABS: Anion Gap 12 mmol/L (10-20); BUN (Urea Nitrogen) 7 mg/dL (9.8-20.1); Calc. Creatinine Clearance 102 mL/min (70-130); Calcium 9.3 mg/dL (7.8-10.44); Carbon Dioxide 28 mmol/L (22-29); Chloride 104 mmol/L (98-107); Estimated GFR 105; Glucose 105 mg/dL (70-105); Potassium 3.4 mmol/L (3.5-5.1); Sodium 141 mmol/L (136-145)
[2023-08-07 05:16] LABS: Platelet Count 1243 10x3/uL (130-400)
[2023-08-07] MEDS: Ipratropium/Albuterol 3 ML NEB NEB SCH ×4 (06:54→23:40)
[2023-08-07] MEDS: Potassium Chloride 20 MEQ in Premix 1 BAG IVPB SCH ×2 (08:24→10:29)
[2023-08-07] MEDS: Acetaminophen 650 MG/20.3 ML UDCUP PER TUBE PRN ×2 (08:45→19:24)
[2023-08-07] MEDS: Cefepime 2 GM in Sodium Chloride 0.9% 100 ML IVPB SCH ×2 (08:46→21:32)
[2023-08-07] MEDS: Famotidine/PF 20 mg/2ml Vial SLOW IVP SCH ×2 (08:46→21:31)
[2023-08-07] MEDS ORDERED: Aspirin 325 MG TAB PO SCH (09:30)
[2023-08-07] MEDS: Sodium Chloride 0.9% 1,000 ML IV SCH (18:17)
[2023-08-07] MEDS: QUEtiapine 25 MG TAB PO SCH (21:31)
[2023-08-08] MEDS: Metoclopramide HCl 10 MG/2 ML VIAL IVP SCH ×4 (04:24→22:30)
[2023-08-08] MEDS: Acetaminophen 650 MG/20.3 ML UDCUP PER TUBE PRN ×2 (05:29→09:32)
[2023-08-08 05:58] LABS: #Basophils 0.1 thou/uL (0.0-0.2); #Eosinphils 0.5 thou/uL (0.0-0.7); #Monocytes 0.9 thou/uL (0.11-0.59); #Neutrophils 11.4 thou/uL (1.40-6.50); %Basophils 0.5 % (0.0-1.0); %Eosinophils 3.1 % (0.0-10.0); %Lymphocytes 17.8 % (21.0-51.0); %Monocytes 5.5 % (0.0-10.0); %Neutrophils 72.1 % (42.0-75.0); Hematocrit 29.1 % (36.0-47.0); Hemoglobin 9.5 g/dL (12.0-16.0); Mean Corpuscular HGB CONC 32.6 g/dL (32.0-36.0); Mean Corpuscular Hemoglobin 32.2 pg (27.0-31.0); Mean Corpuscular Volume 98.6 fl (78.0-98.0); Mean Platelet Volume 8.9 fL (7.4-10.4); Platelet Count 1234 10x3/uL (130-400); RBC Distribution Width 12.7 % (11.5-14.5); Red Blood Cell (RBC) Count 2.95 mill/uL (4.20-5.40); White Blood Cell (WBC) Count 15.8 10x3/uL (4.8-10.8)
[2023-08-08] MEDS: Sodium Chloride 0.9% 1,000 ML IV SCH ×2 (06:15→21:05)
[2023-08-08 06:24] LABS: BUN (Urea Nitrogen) 8 mg/dL (9.8-20.1); Calc. Creatinine Clearance 106 mL/min (70-130); Calcium 9.7 mg/dL (7.8-10.44); Carbon Dioxide 26 mmol/L (22-29); Chloride 105 mmol/L (98-107); Estimated GFR 106; Glucose 126 mg/dL (70-105); Potassium 3.7 mmol/L (3.5-5.1); Sodium 140 mmol/L (136-145)
[2023-08-08 06:28] LABS: Anion Gap 13 mmol/L (10-20)
[2023-08-08] MEDS: Ipratropium/Albuterol 3 ML NEB NEB SCH ×4 (07:20→23:51)
[2023-08-08] MEDS ORDERED: Acetaminophen/Codeine 30-300mg Tablet PER TUBE PRN (08:44)
[2023-08-08] MEDS ORDERED: cloNIDine 0.1 MG TAB PO PRN (09:14)
[2023-08-08] MEDS ORDERED: Amlodipine 5 MG TAB PER TUBE SCH (09:15)
[2023-08-08] MEDS: Famotidine/PF 20 mg/2ml Vial SLOW IVP SCH ×2 (09:33→21:05)
[2023-08-08] MEDS: Aspirin 325 MG TAB PO SCH (09:33)
[2023-08-08] MEDS: QUEtiapine 25 MG TAB PO SCH (21:04)
[2023-08-08] MEDS: Cefepime 2 GM in Sodium Chloride 0.9% 100 ML IVPB SCH (21:27)
[2023-08-09 04:22] LABS: #Basophils 0.1 thou/uL (0.0-0.2); #Eosinphils 0.5 thou/uL (0.0-0.7); #Neutrophils 11.7 thou/uL (1.40-6.50); %Basophils 0.7 % (0.0-1.0); %Eosinophils 3.2 % (0.0-10.0); %Lymphocytes 19.4 % (21.0-51.0); %Monocytes 5.8 % (0.0-10.0); %Neutrophils 69.9 % (42.0-75.0); Hematocrit 30.4 % (36.0-47.0); Hemoglobin 9.8 g/dL (12.0-16.0); Mean Corpuscular HGB CONC 32.2 g/dL (32.0-36.0); Mean Corpuscular Hemoglobin 32.7 pg (27.0-31.0); Mean Corpuscular Volume 101.3 fl (78.0-98.0); Mean Platelet Volume 9.4 fL (7.4-10.4); RBC Distribution Width 12.7 % (11.5-14.5); White Blood Cell (WBC) Count 16.7 10x3/uL (4.8-10.8)
[2023-08-09 04:46] LABS: Platelet Count 1074 10x3/uL (130-400)
[2023-08-09] MEDS: Metoclopramide HCl 10 MG/2 ML VIAL IVP SCH ×4 (04:46→21:01)
[2023-08-09 04:48] LABS: Anion Gap 15 mmol/L (10-20); BUN (Urea Nitrogen) 10 mg/dL (9.8-20.1); Calc. Creatinine Clearance 109 mL/min (70-130); Carbon Dioxide 24 mmol/L (22-29); Chloride 104 mmol/L (98-107); Estimated GFR 107; Glucose 100 mg/dL (70-105); Potassium 3.9 mmol/L (3.5-5.1); Sodium 139 mmol/L (136-145)
[2023-08-09 05:14] VITALS: BMI 24.0
[2023-08-09] MEDS: Ipratropium/Albuterol 3 ML NEB NEB SCH ×3 (06:21→18:39)
[2023-08-09] MEDS: Famotidine/PF 20 mg/2ml Vial SLOW IVP SCH (09:56)
[2023-08-09] MEDS: Amlodipine 5 MG TAB PER TUBE SCH (09:56)
[2023-08-09] MEDS: Aspirin 325 MG TAB PO SCH (09:56)
[2023-08-09] MEDS: Sodium Chloride 0.9% 1,000 ML IV SCH (15:37)
[2023-08-09] MEDS: QUEtiapine 25 MG TAB PO SCH (21:01)
[2023-08-09] MEDS: Famotidine 20 MG TAB PER TUBE SCH (21:02)
[2023-08-09] MEDS: Scopolamine 1 mg/72 hour Patch TD SCH (21:10)
[2023-08-10] MEDS: Sodium Chloride 0.9% 1,000 ML IV SCH ×2 (03:24→17:48)
[2023-08-10] MEDS: Metoclopramide HCl 10 MG/2 ML VIAL IVP SCH ×4 (05:17→21:31)
[2023-08-10] MEDS: Ipratropium/Albuterol 3 ML NEB NEB SCH ×5 (05:27→23:10)
[2023-08-10 08:10] LABS: Anion Gap 18 mmol/L (10-20); BUN (Urea Nitrogen) 12 mg/dL (9.8-20.1); Calc. Creatinine Clearance 103 mL/min (70-130); Calcium 9.9 mg/dL (7.8-10.44); Carbon Dioxide 16 mmol/L (22-29); Chloride 105 mmol/L (98-107); Estimated GFR 105; Glucose 106 mg/dL (70-105); Potassium 4.9 mmol/L (3.5-5.1); Sodium 134 mmol/L (136-145)
[2023-08-10] MEDS: Amlodipine 5 MG TAB PER TUBE SCH (09:02)
[2023-08-10] MEDS: Aspirin 325 MG TAB PO SCH (09:02)
[2023-08-10] MEDS: Famotidine 20 MG TAB PER TUBE SCH ×2 (09:03→21:30)
[2023-08-10] MEDS: Acetaminophen 650 MG/20.3 ML UDCUP PER TUBE PRN (09:03)
[2023-08-10 10:55] LABS: #Basophils 0.1 thou/uL (0.0-0.2); #Eosinphils 0.5 thou/uL (0.0-0.7); #Monocytes 0.9 thou/uL (0.11-0.59); %Basophils 0.5 % (0.0-1.0); %Lymphocytes 18.2 % (21.0-51.0); %Monocytes 5.6 % (0.0-10.0); %Neutrophils 71.8 % (42.0-75.0); Hematocrit 30.9 % (36.0-47.0); Hemoglobin 10.1 g/dL (12.0-16.0); Mean Corpuscular HGB CONC 32.7 g/dL (32.0-36.0); Mean Corpuscular Hemoglobin 31.8 pg (27.0-31.0); Mean Corpuscular Volume 97.2 fl (78.0-98.0); Mean Platelet Volume 9.2 fL (7.4-10.4); Platelet Count 1377 10x3/uL (130-400); Red Blood Cell (RBC) Count 3.18 mill/uL (4.20-5.40); White Blood Cell (WBC) Count 15.3 10x3/uL (4.8-10.8)
[2023-08-10] MEDS ORDERED: Senokot S 8.6-50 MG TAB PO PRN (18:06)
[2023-08-10] MEDS ORDERED: Bisacodyl 5 MG TAB PO PRN (18:06)
[2023-08-10] MEDS ORDERED: Ondansetron ODT 4 MG TAB PO PRN (18:48)
[2023-08-10] MEDS ORDERED: Acetaminophen 325 MG TAB PO PRN (18:52)
[2023-08-10] MEDS: QUEtiapine 25 MG TAB PO SCH (21:30)
[2023-08-11] MEDS: Sodium Chloride 0.9% 1,000 ML IV SCH (02:02)
[2023-08-11 05:33] LABS: #Basophils 0.1 thou/uL (0.0-0.2); #Eosinphils 0.5 thou/uL (0.0-0.7); #Monocytes 0.8 thou/uL (0.11-0.59); #Neutrophils 8.6 thou/uL (1.40-6.50); %Basophils 0.8 % (0.0-1.0); %Eosinophils 3.8 % (0.0-10.0); %Lymphocytes 21.8 % (21.0-51.0); %Monocytes 5.8 % (0.0-10.0); %Neutrophils 66.6 % (42.0-75.0); Hematocrit 33.1 % (36.0-47.0); Hemoglobin 10.8 g/dL (12.0-16.0); Mean Corpuscular HGB CONC 32.6 g/dL (32.0-36.0); Mean Corpuscular Hemoglobin 32.3 pg (27.0-31.0); Mean Corpuscular Volume 99.1 fl (78.0-98.0); Mean Platelet Volume 9.7 fL (7.4-10.4); RBC Distribution Width 13.2 % (11.5-14.5); Red Blood Cell (RBC) Count 3.34 mill/uL (4.20-5.40); White Blood Cell (WBC) Count 12.9 10x3/uL (4.8-10.8)
[2023-08-11] MEDS: Metoclopramide HCl 10 MG/2 ML VIAL IVP SCH ×4 (05:38→23:22)
[2023-08-11 05:59] LABS: Anion Gap 16 mmol/L (10-20); BUN (Urea Nitrogen) 10 mg/dL (9.8-20.1); Calc. Creatinine Clearance 97 mL/min (70-130); Calcium 10.1 mg/dL (7.8-10.44); Carbon Dioxide 21 mmol/L (22-29); Chloride 104 mmol/L (98-107); Estimated GFR 104; Glucose 97 mg/dL (70-105); Sodium 137 mmol/L (136-145)
[2023-08-11 06:05] LABS: Platelet Count 942 10x3/uL (130-400)
[2023-08-11] MEDS: Ipratropium/Albuterol 3 ML NEB NEB SCH ×4 (07:33→23:11)
[2023-08-11] MEDS: Famotidine 20 MG TAB PER TUBE SCH ×2 (08:15→20:16)
[2023-08-11] MEDS: Aspirin 325 MG TAB PO SCH (08:15)
[2023-08-11] MEDS: Amlodipine 5 MG TAB PER TUBE SCH (08:16)
[2023-08-11] MEDS: QUEtiapine 25 MG TAB PO SCH (20:16)
[2023-08-12] MEDS: Metoclopramide HCl 10 MG/2 ML VIAL IVP SCH ×2 (05:16→11:48)
[2023-08-12 06:18] LABS: #Basophils 0.1 thou/uL (0.0-0.2); #Eosinphils 0.6 thou/uL (0.0-0.7); #Monocytes 0.9 thou/uL (0.11-0.59); #Neutrophils 6.1 thou/uL (1.40-6.50); %Eosinophils 5.7 % (0.0-10.0); %Lymphocytes 30.1 % (21.0-51.0); %Monocytes 8.2 % (0.0-10.0); %Neutrophils 53.9 % (42.0-75.0); Hematocrit 30.4 % (36.0-47.0); Hemoglobin 9.7 g/dL (12.0-16.0); Mean Corpuscular HGB CONC 31.9 g/dL (32.0-36.0); Mean Corpuscular Hemoglobin 31.7 pg (27.0-31.0); Mean Corpuscular Volume 99.3 fl (78.0-98.0); Mean Platelet Volume 9.4 fL (7.4-10.4); RBC Distribution Width 13.5 % (11.5-14.5); Red Blood Cell (RBC) Count 3.06 mill/uL (4.20-5.40); White Blood Cell (WBC) Count 11.3 10x3/uL (4.8-10.8)
[2023-08-12 06:20] LABS: Platelet Count 1297 10x3/uL (130-400)
[2023-08-12 07:23] LABS: Anion Gap 19 mmol/L (10-20); BUN (Urea Nitrogen) 9 mg/dL (9.8-20.1); Calc. Creatinine Clearance 93 mL/min (70-130); Calcium 8.8 mg/dL (7.8-10.44); Carbon Dioxide 20 mmol/L (22-29); Chloride 103 mmol/L (98-107); Estimated GFR 99; Glucose 82 mg/dL (70-105); Potassium 3.8 mmol/L (3.5-5.1); Sodium 138 mmol/L (136-145)
[2023-08-12] MEDS: Ipratropium/Albuterol 3 ML NEB NEB SCH ×2 (07:24→12:21)
[2023-08-12] MEDS: Aspirin 325 MG TAB PO SCH (09:35)
[2023-08-12] MEDS: Amlodipine 5 MG TAB PER TUBE SCH (09:35)
[2023-08-12] MEDS: Famotidine 20 MG TAB PER TUBE SCH (09:35)
[2023-08-12 16:13] VITALS: BP 135/94; TEMP 98.2
== END 2023-08-12 14:05 | disposition home or self-care (01) | DRG 3 ==
LOC: SDC 20:56 → CCU 21:40 → T4-B 08-09 14:30
PROVIDERS: ADMIT Surgery; ATTEND Surgery
PROC: 00C40ZZ Extirpation of Matter from Intracranial Subdural Space, Open Approach (ICD-10-PCS; principal; 2023-07-25)
PROC: 5A1955Z Respiratory Ventilation, Greater than 96 Consecutive Hours (ICD-10-PCS; 2023-07-25)
PROC: 4A133R1 Monitoring of Arterial Saturation, Peripheral, Percutaneous Approach (ICD-10-PCS; 2023-07-25)
PROC: 3E033XZ Introduction of Vasopressor into Peripheral Vein, Percutaneous Approach (ICD-10-PCS; 2023-07-25)
PROC: 5A09457 Assistance with Respiratory Ventilation, 24-96 Consecutive Hours, Continuous Positive Airway Pressure (ICD-10-PCS; 2023-07-29)
PROC: 0B110F4 Bypass Trachea to Cutaneous with Tracheostomy Device, Open Approach (ICD-10-PCS; 2023-08-01)
PROC: 0DH63UZ Insertion of Feeding Device into Stomach, Percutaneous Approach (ICD-10-PCS; 2023-08-01)
PROC: 30233J1 Transfusion of Nonautologous Serum Albumin into Peripheral Vein, Percutaneous Approach (ICD-10-PCS; 2023-08-02)
DX: I62.00 Nontraumatic subdural hemorrhage, unspecified (principal); A41.9 Sepsis, unspecified organism; J69.0 Pneumonitis due to inhalation of food and vomit; J96.01 Acute respiratory failure with hypoxia; J18.9 Pneumonia, unspecified organism; K56.7 Ileus, unspecified; L76.34 Postprocedural seroma of skin and subcutaneous tissue following other procedure; E46 Unspecified protein-calorie malnutrition; F17.210 Nicotine dependence, cigarettes, uncomplicated; I10 Essential (primary) hypertension; J44.9 Chronic obstructive pulmonary disease, unspecified; R13.12 Dysphagia, oropharyngeal phase; F19.10 Other psychoactive substance abuse, uncomplicated; J38.4 Edema of larynx; Z18.10 Retained metal fragments, unspecified; Z98.890 Other specified postprocedural states; R53.1 Weakness; R53.81 Other malaise
CPT/HCPCS: 36415; 36416; 36600; 70450; 70496; 71045; 74018; 80048; 80053; 81001; 81003; 81270; 82805; 85025; 85610; 85730; 87040; 87086; 93970; 94002; 94003; 94640; 94660; 94760; C1713; C1889; J0171; J0330; J0692; J1100; J1650; J1953; J2001; J2060; J2250; J2272; J2405; J2543; J2704; J2765; J3010; J3480; J3490; J7050; J7120; J7620; P9047; Q9967; S0020; S0028

== ENCOUNTER 2024-10-09 22:31 | Emergency (ER) | payer OTHER ==
[~2024-10-09 22:31] MED LIST changes: -EPINEPHrine 1 MG/ML AMP ONE; -Fentanyl 250 MCG/5 ML VIAL ONE; +Iopamidol-370 76% 500 ML MDV (1 ML CHARGE) ONE; -Lidocaine 1% (PF) 30 ML VIAL ONE
[2024-10-10] MEDS ORDERED: Acetaminophen 500 MG TAB ONE (00:26)
[2024-10-10] MEDS ORDERED: diphenhydrAMINE 50 MG/ML VIAL ONE (00:26)
[2024-10-10] MEDS ORDERED: Prochlorperazine 10 MG/2 ML VIAL ONE (00:26)
[2024-10-10 00:41] LABS: #Basophils 0.09 10x3/uL (0.0-0.2); %Basophils 0.9 % (0.0-1.0); %Eosinophils 0.9 % (0.0-10.0); %Lymphocytes 18.2 % (21.0-51.0); %Monocytes 4.2 % (0.0-10.0); %Neutrophils 75.4 % (42.0-75.0); Hematocrit 42.8 % (36.0-47.0); Hemoglobin 14.2 g/dL (12.0-16.0); Mean Corpuscular HGB CONC 33.2 g/dL (32.0-36.0); Mean Corpuscular Hemoglobin 30.9 pg (27.0-31.0); Mean Platelet Volume 8.8 fL (7.4-10.4); Platelet Count 487 10x3/uL (130-400); RBC Distribution Width 13.8 % (11.5-14.5)
[2024-10-10 00:52] LABS: ALT (SGPT) 9 U/L (8-55); AST (SGOT) 17 U/L (5-34); Alkaline Phosphatase 77 U/L (40-110); Anion Gap 16 mmol/L (10-20); BUN (Urea Nitrogen) 11 mg/dL (9.8-20.1); Bilirubin, Total 0.3 mg/dL (0.2-1.2); Calc. Creatinine Clearance 0 mL/min (70-130); Calcium 9.2 mg/dL (7.8-10.44); Carbon Dioxide 22 mmol/L (22-29); Chloride 102 mmol/L (98-107); Estimated GFR 95; Globulin 4.2 g/dL (2.4-3.5); Glucose 72 mg/dL (70-105); Protein, Total 8.2 g/dL (6.0-8.3); Sodium 136 mmol/L (136-145)
[2024-10-10 01:47] LABS: Prothrombin Time 13.3 sec (12.0-14.7)
[2024-10-10 01:48] LABS: PTT 32.1 sec (22.9-36.1)
== END 2024-10-10 03:12 | disposition home or self-care (01) ==
LOC: ERS 22:31
DX: G44.009 Cluster headache syndrome, unspecified, not intractable (principal); G62.9 Polyneuropathy, unspecified; F17.210 Nicotine dependence, cigarettes, uncomplicated; J42 Unspecified chronic bronchitis; Z86.73 Personal history of transient ischemic attack (TIA), and cerebral infarction without residual deficits
CPT/HCPCS: 36415; 36416; 70450; 70496; 70498; 71045; 80053; 84484; 85025; 85610; 85730; 93005; 94760; 96374; 96375; J0780; J1200; Q9967

== ENCOUNTER 2025-09-18 16:19 | Outpatient (CLI) | payer OTHER | END 2025-09-18 16:20 | disposition home or self-care (01) | LOC: BICRAD 16:19 | PROVIDERS: ATTEND Internal Medicine | DX: Z02.71 Encounter for disability determination (principal) ==